=== PATIENT | male | born 1965 | race Caucasian/White ===

== ENCOUNTER 2023-03-23 12:10 | Emergency (ER) | payer BC ==
[2023-03-23 12:25] VITALS: RESP 20; BMI 25.4
[2023-03-23 14:27] LABS: BASO % 0.6 % (0-2.0); EOS % 1.4 % (0-4.5); HEMATOCRIT 40.1 % (35.4-49); LYMPH % 11.3 % (8-40); MCH 31.3 pg (25.7-33.7); MCHC 34.8 g/dl (32.0-35.9); MEAN CELL VOLUME 89.9 fl (80-96); MEAN PLT VOLUME 8.3 fl (7.5-11.1); MONO % 8.5 % (3.8-10.2); NEUT % 78.2 % (42.8-82.8); PLATELET COUNT 214 10^3/uL (134-434); RBC 4.46 M/mm3 (4.00-5.60); RDW 13.5 % (11.9-15.9); WHITE BLOOD COUNT 8.4 K/mm3 (4.0-10.0)
[2023-03-23 14:39] LABS: POTASSIUM 4.5 mmol/L (3.5-5.1)
[2023-03-23 14:41] LABS: ALBUMIN 3.4 g/dl (3.4-5.0); CALCIUM 8.6 mg/dL (8.5-10.1)
[2023-03-23 14:42] LABS: BLOOD UREA NITROGEN 12.2 mg/dL (7-18)
[2023-03-23 14:44] LABS: CREATININE 0.7 mg/dL (0.55-1.3)
[2023-03-23 14:46] LABS: BILIRUBIN,TOTAL 1.1 mg/dL (0.2-1); TOT PROT 7.2 g/dl (6.4-8.2)
[2023-03-23 17:53] VITALS: BP 123/73; PULSE 81; TEMP 99
== END 2023-03-23 17:58 | disposition home or self-care (01) ==
LOC: JER 12:10
DX: R06.02 Shortness of breath (principal); R50.9 Fever, unspecified; R07.9 Chest pain, unspecified; Z20.822 Contact with and (suspected) exposure to COVID-19
CPT/HCPCS: 0241U-QW; 36415; 71275-TC; 80053; 85025; 93005; 93010; 99285-25; Q9967